=== PATIENT | female | born 1990 | race Caucasian/White ===

== ENCOUNTER 2025-04-07 17:34 | Emergency (ER) | payer SELFPAY ==
[2025-04-07 17:39] VITALS: BP 134/82; PULSE 95; RESP 16; TEMP 37.1; O2SAT 100; BMI 21.7
--- NOTE | 2025-04-07 18:03 | XRR_ITS ---
PROCEDURE INFORMATION: Exam: XR Left Hand Exam date and time: 04/07/2025 6:06 PM Age: 34 years old Clinical indication: Injury or trauma; Other: Cat bite to lt pointer finger; Hand and finger; Index finger; Left; Additional info: Cat bite index finger TECHNIQUE: Imaging protocol: Radiologic exam of the left hand. Views: 3 or more views. COMPARISON: No relevant prior studies available. FINDINGS: Two views. Bones/joints: Normal. Soft tissues: Normal. XR/XR hand LT 2V [id number] IMPRESSION: No acute findings. No radiopaque foreign body or fracture of right index finger.
[2025-04-07] MEDS: tetanus-dipt-pertussis 0.5 mL SDV IM (18:10)
--- NOTE | 2025-04-07 18:15 | W.ED.ANIMALB ---
HPI - Animal Bite General: Chief Complaint: Animal Bite Stated Complaint: L index finger cat bite Time Seen by Provider: 04/07/25 17:47 History of Present Illness: Chief complaint is kitten bit her left index finger. She is left-hand dominant. She is not certain if she has had tetanus in the last 5 years but states it is close. No other area of injury. The kitten is observable and was acting normal. She has pain and some numbness in the left index finger. She states she washed it extensively and treated with antiseptic. Related Data Home Medications ?Medication ?Instructions ?Recorded ?Confirmed clonazepam 1 mg tablet (Klonopin) 1 mg PO BID 01/20/25 01/20/25 venlafaxine 150 mg 150 mg PO DAILY 01/20/25 01/20/25 capsule,extended release 24 hr Previous Rx's ?Medication ?Instructions ?Recorded prednisone 20 mg tablet 40 mg (2 x 20 mg) PO DAILY 4 days 01/20/25 #8 tabs amoxicillin 875 mg-potassium 1 tab PO BID 7 days #14 tabs 04/07/25 clavulanate 125 mg tablet Allergies Allergy/AdvReac Type Severity Reaction Status Date / Time No Known Allergies Allergy Verified 04/07/25 17:44 [facility] PFSH: Social History Smoking and tobacco/nicotine status: never used tobacco/nicotine Female Reproductive History: Date of last menstrual period: 03/14/25 Physical Exam Narrative: EXAM NARRATIVE: Alert oriented no acute distress. No signs of trauma to her head. Normal conjunctiva. Pupils are reactive and equal. Neck is supple. She is breathing comfortably. Heart regular rhythm. Abdomen soft nontender. Lung sounds are clear. Extremities warm well-perfused. She has several banks on her left index finger consistent with puncture banks from a kitten and a superficial appearing abrasion as well. She moves her finger freely and flexes and extends freely including flexing the PIP and DIP. No swelling. Some mild decrease sensation distally. Patient shows ability to reason. Speech is clear. No ataxia. No rash in exposed areas. Course Vital Signs: Vital signs: Vital Signs Temperature 98.7 F 04/07/25 17:39 Pulse Rate 95 04/07/25 17:39 Respiratory Rate 16 04/07/25 17:39 Blood Pressure 134/82 04/07/25 17:39 Pulse Oximetry 100 04/07/25 17:39 Oxygen Delivery Me thod Room Air 04/07/25 17:39 MDM - Animal Bite Medical Decision Making Patient with a bite by a kitten of the left index finger. I advised patient high risk of infection. I ordered Augmentin here and will prescribe Augmentin. I advised potential for retained tooth and ordered x-ray. This was negative for acute process to my independent review of the images and interpretation. Advise follow-up on formal interpretation. I ordered Tdap with patient permission and patient decided she does not want the rabies vaccine. I advised patient that she is low risk of quique rabies as the kitten has been acting normal and is observable and I advised option of sacrificing kitten for rabies testing. She decided she did want the rabies vaccine after informed discussion and immunoglobulin and rabies was administered and I advised need for subsequent dosing. She states she will be out of town so I wrote her a prescription for her subsequent rabies shots. I advised fatal nature of rabies and importance of following the vaccine schedule. Advised signs and symptoms of worsening infection to watch and return for and risk of developing infection of the tendon, tendon sheath, bone, deep space infection, cellulitis, among others. I advised prompt outpatient follow-up and return instructions. The patient states that the kitten has been staying in her garage for the last 4 days and that she can observe the kitten. Patient denies having diabetes or immunosuppression. She states she is not sexually active and no possibility of . Lab Data Radiology Impressions Hand X-Ray 04/07/25 18:03 IMPRESSION: No acute findings. No radiopaque foreign body or fracture of right index finger. All radiology interpretation(s) finalized by discharge Discharge Plan Discharge Patient Disposition: Home Clinical Impression: Cat bite Condition: Stable Prescriptions: New amoxicillin-pot clavulanate 875-125 mg tablet 1 tab PO BID 7 Days Qty: 14 0RF No Action clonazepam [Klonopin] 1 mg tablet 1 mg PO BID venlafaxine 150 mg capsule,extended release 24hr 150 mg PO DAILY prednisone 20 mg tablet 40 mg PO DAILY 4 Days Qty: 8 0RF Discharge Orders: Discharge ED (Routine); Ordered 04/07/25 Ordered By: Alan Nicolas Patient Instructions: Opioid Safety, Pain Management, Patient Portal & [facility] Instructions Activity Restrictions/Additional Instructions: Follow-up for repeat rabies vaccine on day 3, day 7 and day 14. Make sure to observe the kitten and you can have kitten sacrificed for rabies testing as discussed. Please come back if increased pain or swelling to your finger, fever, redness, any worse or concerns. Follow-up on formal x-ray interpretation with your doctor. Follow-up for recheck of your finger with your primary care doctor in 2 to 3 days. Come back if itching or rash or swelling to your throat or trouble breathing or symptoms of allergic reaction. Print Language: Chinese Coding Level of Care Code ED Modular Home Crew Member for Justin Durant
[2025-04-07] MEDS: rabies vaccine 2.5 unit SDV IM (18:36)
[2025-04-07] MEDS: rabies IG 300 unit/mL SDV 1 mL 1230 UNIT IM (18:42)
[2025-04-07 18:57] VITALS: BP 125/86; PULSE 100; O2SAT 100
[2025-04-07 19:14] VITALS: BP 127/89; PULSE 85; O2SAT 98
--- OUTSIDE RECORDS SUMMARY | 2025-04-09 12:17 | XMS_ITS | Clinical Summary ---
Author Organization [facility] Address [address] [place] [address] Care Team Providers Care Trim Attacher Name Role Phone Unavailable Primary Care Provider Unavailabl e Allergies Active Allergy Reactions Criticality Noted Date Comments Oxycodone-Acetaminophen Hives,Itching,Palpitations High 03/10/2019 Medications clonazePAM (KlonoPIN) 0.5 mg Tablet 02/25/2019 Active divalproex (DEPAKOTE) 250 mg Delayed Release tablet 03/08/2019 Active prazosin (MINIPRESS) 1 mg capsule 02/25/2019 Active traZODone (DESYREL) 50 mg tablet 01/23/2019 Active zaleplon (SONATA) 5 mg capsule 02/27/2019 Active venlafaxine (EFFEXOR) 50 mg tablet 02/25/2019 Active venlafaxine (EFFEXOR XR) 150 mg Extended Release 24 hour capsule 02/27/2019 Active Active Problems No known active problems Social History Tobacco Use Types Packs/Day Years Used Date Smoking Tobacco: Never Assessed Comments No Sex and Gender Information Value Date Recorded Sex Assigned at Not on file Legal Sex Female 4:39 PM CDT Gender Identity Not on file Sexual Orientation Not on file Last Filed Vital Signs Vital Sign Reading Time Taken Comments Blood Pressure 109/66 03/10/2019 4:47 PM CDT Pulse 124 03/10/2019 4:47 PM CDT Temperature 39.3 C (102.8 F) 03/10/2019 4:47 PM CDT Respiratory Rate - - Oxygen Saturation 98% 03/10/2019 4:47 PM CDT Inhaled Oxygen Concentration - - Weight 59 kg (130 lb) 03/10/2019 4:47 PM CDT Height 167.6 cm (5' 6 ) 03/10/2019 4:47 PM CDT Body Mass Index 20.98 03/10/2019 4:47 PM CDT Plan of Treatment Health Maintenance Due Date Last Done Comments HPV VACCINES (1 - 3-dose series) 2005 DTAP/TDAP/TD VACCINES (1 - Tdap) 2009 HEPATITIS B VACCINES (1 of 3 - 19+ 3-dose series) 09/2009 HPV/Cotest (21-29) 11/28/2011 CERVICAL CANCER SCREENING 2020 HPV/Cotest (30-65) 2020 PAP SMEAR 2020 INFLUENZA VACCINE (#1) 2025 Insurance [employer]
--- OUTSIDE RECORDS SUMMARY | 2025-04-09 12:17 | XMS_ITS | Clinical Summary ---
Author Organization [employer] [facility] Address [address] Attn: Epic Prelude ADT SANDRA BAKER [id number] Care Team Providers Care Fashion Director Party Plan Sales Name Role Phone Unavailable Primary Care Provider Unavailabl e Allergies Active Allergy Reactions Criticality Noted Date Comments Oxycodone-Acetaminophen Hives,Itching,Palpitations High 03/10/2019 Medications traZODone (DESYREL) 50 mg tablet 01/23/2019 Active divalproex (DEPAKOTE) 250 mg Delayed Release tablet 03/08/2019 Active zaleplon (SONATA) 5 mg capsule 02/27/2019 Active venlafaxine (EFFEXOR) 50 mg tablet 02/25/2019 Active prazosin (MINIPRESS) 1 mg capsule 02/25/2019 Active venlafaxine (EFFEXOR XR) 150 mg Extended Release 24 hour capsule 02/27/2019 Active clonazePAM (KlonoPIN) 0.5 mg Tablet 02/25/2019 Active Social History Tobacco Use Types Packs/Day Years Used Date Smoking Tobacco: Never Assessed Comments Unknown Sex and Gender Information Value Date Recorded Sex Assigned at Not on file Legal Sex 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
--- OUTSIDE RECORDS SUMMARY | 2025-04-09 12:17 | XMS_ITS | Patient Health Record ---
Author Organization [facility] Address [address] [place], [place] [address] Care Team Providers Care Turkey Picker Name Role Phone ShaneKurt britt Primary Care Provider Allergies No Known Allergies Reason For Referral No Information Medications Medication SIG (Take, Route, Frequency, Duration) Notes Start Date End Date Status Prazosin HCl 1 mg Capsule TAKE 2 CAPSULE S AT BEDTIME Not-Taking Venlafaxine HCl ER 150 MG Capsule Extended Release 24 Hour TAKE ONE CAPSULE BY MOUTH ONCE DAILY WITH FOOD; Duration: 30 Active Divalproex Sodium 500 MG Tablet Delayed Release TAKE ONE TABLET BY MOUTH TWICE A DAY; Duration: 30 Active clonazePAM 1 MG Tablet 1 tablet as neede d Orally Twice a day; Duration: 30 days Active Social History Tobacco Use: Social History Observation Description Date Details (start date - stop date) Never Smoker NA - NA Social History Depression Screening Social Info Question Answer Notes PHQ-9 Little interest or pleasure in doing thin gs Not at all Feeling down, depressed, or hopeless Not at all Trouble falling or staying asleep, or sleeping t oo much Not at all Feeling tired or having little energy Not at all Poor appetite or overeating Not at all Feeling bad about yourself, or that you are a failure, or have let yourself or your family down Not at all Trouble concentrating on thi ngs, such as reading the newspaper or watching television Not at all Moving or speaking so slowly that other people could have noticed. Or the opposite ? being so fidgety or restless that you have been moving around a lot more than usual Not at all Thoughts that you would be b mikaela off , or of hurting yourself in some way Not at all Total Score 0 Drugs/Alcohol: Social Info Question Answer Notes Alcohol Screen (Audit-C) Did you have a drink containing alcohol in the past year? 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 ;Social History(Smoking(MU):):[facility] Status: Non-smoker ; Section Notes: Lives with family Lives with family Lives with family Lives with family Lives with family Lives with family Lives with family Lives with family Lives with family Lives with family Lives with family Problems Problem Type SNOMED Code ICD Code Onset Dates Problem Status W/U Status Risk Notes Problem Moderate major depression, single episode (87665837) Major depressive disorder, single episode, moderate (F32.1) Active confirmed Problem Anxiety disorder (927254108) Anxiety disorder, unspecified (F41.9) Active confirmed Problem Insomnia (G47.00) Active confirmed Vital Signs Heart Rate 100 /min 06/17/2024 Height-cm 167 cm 06/17/2024 Blood pressure diastolic 68 mm Hg 06/17/2024 Weight-kg 63.5 kg 06/17/2024 Height 65.75 in 06/17/2024 Blood pressure systolic 122 mm Hg 06/17/2024 Weight 140 lbs 06/17/2024 BMI 22.77 kg/m2 06/17/2024 Encounters Encounter Location Date Provider Diagnosis [facility] [address] [phone] 06/17/2024 Kurt Shane Major depressive disorder, single episode, moderate F32.1 and Anxiety disorder, unspecified F41.9 [facility] [address] [place] [address] 11/04/2024 Kurt Shane Major depressive disorder, single episode, moderate F32.1 [facility] [address] [place] [address] 06/11/2024 Kurt Shane [facility] [address] [place] [address] 04/09/2024 Kurt Shane [facility] [address] [place] [phone] 04/09/2024 Kurt Shane Assessments Encounter Date Diagnosis (ICD Code) Assessment Notes Treatment Notes Treatment Clinical Notes Section Notes 06/17/2024 Major depressive disorder, single episode, moderate (ICD-10 - F32.1) [place] Refill meds as listed, 3 RF 11/04/2024 Major depressive disorder, single episode, moderate (ICD-10 - F32.1) 06/17/2024 Anxiety disorder, unspecified (ICD-10 - F41.9) Plan Of Treatment Pending Test Test Name Order Date STEFAN IGG SCREEN W/ RFX [id number] 08/06/2020 Medical (General) History Medical History History ICD Code Post depression Anxiety Hospitalization History Reason Date(Month/Year) SI, Depression to [facility] 2019
== END 2025-04-07 19:15 | disposition home or self-care (01) ==
PROVIDERS: Emergency Provider Emergency Medicine
DX: S61.251A Open bite of left index finger without damage to nail, initial encounter (principal); W55.01XA Bitten by cat, initial encounter; Z20.3 Contact with and (suspected) exposure to rabies; Z29.14 Encounter for prophylactic rabies immune globulin
CPT/HCPCS: 73120; 90375; 90675; 90715; 96372; 99283; J9999

== ENCOUNTER 2025-04-21 10:04 | Oncology outpatient (recurring) (ONCR) | payer SELFPAY ==
[2025-04-10] MEDS: rabies vaccine 2.5 unit SDV IM (13:52)
[2025-04-14] MEDS: rabies vaccine 2.5 unit SDV IM (09:33)
[2025-04-21] MEDS: rabies vaccine 2.5 unit SDV IM (10:46)
== END 2025-04-27 23:59 | disposition home or self-care (01) ==
PROVIDERS: Visit Provider Emergency Medicine
DX: Z53.9 Procedure and treatment not carried out, unspecified reason (principal); Z23 Encounter for immunization; Z20.3 Contact with and (suspected) exposure to rabies; S61.251A Open bite of left index finger without damage to nail, initial encounter; W55.01XA Bitten by cat, initial encounter
CPT/HCPCS: 90471; 90675